=== PATIENT | male | born 1945 | race Caucasian/White ===

== ENCOUNTER 2017-02-05 11:37 | Inpatient (IN) | payer MEDICARE ==
[~2017-02-05] VITALS: Ht 172.7 cm; Wt 85.0 kg
[2017-02-05] VITALS (23 sets, daily range): BP systolic 84–177; BP diastolic 58–99; PULSE 0–80; RESP 9–26; Ht 172.7 cm; Wt 85.0 kg
[2017-02-05] MEDS ORDERED: OLME1TAB5 PO (12:21)
[2017-02-05] MEDS ORDERED: PROP10TA6 PO (12:22)
[2017-02-05] MEDS ORDERED: ASPI-664 PO (12:22)
[2017-02-05] MEDS ORDERED: SIMV20TA PO (12:22)
[2017-02-05] MEDS ORDERED: CEFAZOLIN 2 GM/50 ML (PMX) 50 ML IVPB ONE (12:30)
[2017-02-05] MEDS ORDERED: LACTATED RINGER'S 1,000 ML IV* ONE (12:30)
--- NOTE | 2017-02-05 15:43 | HPN ---
Date/Time of Note Date/Time of Note DATE: 02/05/17 TIME: 15:43 Interval H&P Admission Note Pt. seen H&P reviewed: No system changes RASHARD ANGULO MD Feb 05, 2017 15:43
[2017-02-05] MEDS ORDERED: GELATIN SIZE 100 SPONGE ONE (15:52)
[2017-02-05] MEDS ORDERED: THROMBIN 5000 UNIT VIAL ONE (15:52)
[2017-02-05] MEDS ORDERED: POLYMYXIN/BACITRACIN 1L IRRIG ONE (15:52)
[2017-02-05] MEDS ORDERED: BUPIVACAINE 0.5%/EPI (SDV) 10 ML INJ ONE (15:53)
[2017-02-05] MEDS ORDERED: BETAMET NA PHOS/AC(6 MG/ML) 5ML INJ ONE (15:53)
[2017-02-05] MEDS ORDERED: SUCCINYLCHOLINE CHLORIDE 100 MG/5 ML SYG IV ONE ×2 (16:18→16:45)
[2017-02-05] MEDS ORDERED: ROCURONIUM 50 MG INJ ONE (16:18)
[2017-02-05] MEDS ORDERED: PROPOFOL 20 ML ONE (16:18)
[2017-02-05] MEDS ORDERED: LIDOCAINE 2% (SDV) 5 ML INJ ONE (16:18)
[2017-02-05] MEDS ORDERED: MIDAZOLAM 1 MG/ML 2 ML INJ ONE (16:18)
[2017-02-05] MEDS ORDERED: CEFAZOLIN 1 GM INJ ONE (16:44)
[2017-02-05] MEDS ORDERED: DEXAMETHASONE 4 MG/ML 1 ML INJ ONE (16:54)
[2017-02-05] MEDS ORDERED: ONDANSETRON 4 MG INJ ONE (16:54)
[2017-02-05] MEDS ORDERED: FAMOTIDINE 20 MG INJ ONE (16:54)
[2017-02-05] MEDS: LIDOCAINE 2%/EPI 30 ML INJ ONE ×2 (17:01→19:52)
[2017-02-05] MEDS ORDERED: HEMOSTATIC MATRIX SYG ZFS ONE (17:57)
[2017-02-05] MEDS ORDERED: HYDROmorphONE 2 MG/ML SYG ONE (19:34)
--- NOTE | 2017-02-05 20:22 | OPR ---
Date/Time of Note Date/Time of Note DATE: 02/05/17 TIME: 20:16 Operative Report Free Text/Dictation DATE OF OPERATION: 02/05/2017 PREOPERATIVE DIAGNOSES: 1. L4-5 severe spinal stenosis with neurogenic claudication 2. L3-4 spinal stenosis with neurogenic claudication POSTOPERATIVE DIAGNOSES: 1. L4-5 severe spinal stenosis with neurogenic claudication 2. L3-4 spinal stenosis with neurogenic claudication OPERATION PERFORMED: 1. L4-5 bilateral laminectomy, medial facetectomy, and foraminotomy 2. L3-4 bilateral laminectomy, medial facetectomy, and foraminotomy SURGEON: Rashard Angulo MD MANAGER ASSET MANAGEMENT: Stephen Alvarado MD ANESTHESIA: General endotracheal ESTIMATED BLOOD LOSS: 150 mL SURGICAL INDICATION: The patient is a 71 year-old male who presents with a chronic history of increasing of bilateral lower extremity pain and numbness that is worst with ambulation. The patient was unable to ambulate significant distances secondary to their pain. Tillar's symptoms failed to improve with a conservative course of treatment. . Risks, benefits, and alternatives to a decompressive procedure including but not exclusive of risks of bleeding, infection, nerve injury, cauda equina syndrome, iatrogenic instability, dural tear, myocardial infarction, stroke, pulmonary embolism were explained to the patient, and she wished to proceed. DESCRIPTION OF TECHNIQUE: The patient was identified in the preoperative area and taken to the operating room. Rapid induction of general endotracheal anesthesia was performed. Patient was given 2 g of cefazolin for prophylaxis. The patient was then placed in the prone position on the Amanuel table on top of a Tony frame with all bony prominences well padded. The back was prepped and draped in usual sterile manner. Using a spinal needle and intraoperative fluoroscopy, the L4-5 level was clearly identified. The skin was injected using1% lidocaine with epinephrine. Longitudinal midline incision was then created using a 10 blade. Further dissection through soft tissue was performed using electrocautery down to the spinous processes bilaterally. Dissection was taken down the bilateral lamina and over the facet joint capsule. A self-retaining retractor was applied. Again , intraoperative fluoroscopy confirmed the level. A rongeur was used to remove a portion of the L4 spinous process and the interspinous ligaments. We identified the interlaminar window. The microscope was brought into use for microdissection. The high-speed bur was used to thin the L4 lamina. Kerrison rongeurs were then used to resect a the lamina, and a portion of the medial facet and the bone overlying the foramen. Ligamentum flavum was also resected using the Kerrison rongeurs. Care was taken to protect the thecal sac throughout the decompressive procedure. Palpation with a ball-tip probe did not reveal any further stenosis in the central, subarticular, or foraminal areas. The bilateral L5 and L4 pedicles were palpated using a joe to ensure a pedicle to pedicle decompression. The exiting L4 nerve root and traversing L5 nerve roots were both directly visualized and noted to be decompressed. The cephalad and caudad extent of the decompression were also confirmed using ball- tip probes and intraoperative fluoroscopy. We then focused on the L3-4 level. The L3-4 level was clearly identified using fluoroscopy. The skin was injected using1% lidocaine with epinephrine. Longitudinal midline incision was extended proximally using a 10 blade. Further dissection through soft tissue was performed using electrocautery down to the spinous processes bilaterally. Dissection was taken down the bilateral lamina and over the facet joint capsule. A self-retaining retractor was applied. Again , intraoperative fluoroscopy confirmed the level. A rongeur was used to remove a portion of the L3 spinous process and the interspinous ligaments. We identified the interlaminar window. The microscope was brought into use for microdissection. The high-speed bur was used to thin the L3 lamina. Kerrison rongeurs were then used to resect a the lamina, and a portion of the medial facet and the bone overlying the foramen. Ligamentum flavum was also resected using the Kerrison rongeurs. Care was taken to protect the thecal sac throughout the decompressive procedure. Palpation with a ball-tip probe did not reveal any further stenosis in the central, subarticular, or foraminal areas. The bilateral L3 and L4 pedicles were palpated using a joe to ensure a pedicle to pedicle decompression. The exiting L3 nerve root and traversing L4 nerve roots were both directly visualized and noted to be decompressed. The cephalad and caudad extent of the decompression were also confirmed using ball- tip probes and intraoperative fluoroscopy. The wound was irrigated copiously using normal saline. Meticulous attention was paid toward hemostasis using bipolar cautery, FloSeal and thrombin. Care was taken to remove all FloSeal prior to wound closure. A medium Hemovac was placed. The fascia was then closed using 0 Vicryl in interrupted fashion. Subcutaneous tissue was closed using 2-0 Vicryl in interrupted fashion. Skin was closed using a running 4-0 Monocryl stitch. The wound was dressed using Dermabond, sterile gauze and Tegaderm. The patient was returned to the supine position. They were extubated immediately postoperatively and taken to the recovery room in stable condition. COMPLICATIONS: None. Anesthesia Type: general Estimated Blood Loss: 100 - 150 ml's Transfusion Required: no Specimen: none Grafts/Implants: none Complications: no Pt Condition Post Procedure: stable Disposition: PACU RASHARD ANGULO MD Feb 05, 2017 20:21
[2017-02-05] MEDS ORDERED: PROCHLORPERAZINE 10 MG TAB PO PRN (20:30)
[2017-02-05] MEDS ORDERED: PROCHLORPERAZINE 10 MG INJ IV PRN (20:30)
[2017-02-05] MEDS ORDERED: MEPERIDINE 25 MG INJ IV PRN (20:30)
[2017-02-05] MEDS ORDERED: ONDANSETRON 4 MG INJ IV PRN (20:30)
[2017-02-05] MEDS ORDERED: HYDROCODONE/APAP (5/325) TAB PO PRN (20:30)
[2017-02-05] MEDS ORDERED: HYDROmorphONE 0.2 MG/ML PCA IV SCH (20:30)
[2017-02-05] MEDS ORDERED: DIPHENHYDRAMINE 50 MG INJ IV PRN (20:30)
[2017-02-05] MEDS ORDERED: NACL 0.9% 3 ML SYG IV SCH (20:30)
[2017-02-05] MEDS ORDERED: HYDROmorphONE (0.2 MG/ML) 10ML SYG IV PRN ×3 (20:30)
[2017-02-05] MEDS ORDERED: NALOXONE (0.4 MG/ML) INJ IV PRN (20:30)
[2017-02-05] MEDS ORDERED: FENTAnyl 50 MCG/ML VIAL IV PRN (20:30)
[2017-02-05] MEDS: ONDANSETRON 4 MG INJ IV PRN ×2 (20:40→20:55)
[2017-02-05] MEDS: CEFAZOLIN 1 GM/50 ML (PMX) 50 ML IVPB SCH (23:56)
[2017-02-06] VITALS: BP 127/70; PULSE 69; RESP 18
[2017-02-06 00:10] VITALS: BP 127/70; RESP 20
[2017-02-06 05:10] VITALS: BP 125/65; PULSE 79; RESP 18
[2017-02-06 05:35] LABS: CALCIUM 9.2 mg/dl (8.4-10.2); CREATININE 1.37 mg/dl (0.61-1.24); POTASSIUM 4.4 mmol/L (3.5-5.1)
[2017-02-06 05:45] LABS: HEMOGLOBIN 10.7 g/dl (14.0-18.0)
[2017-02-06] MEDS: CEFAZOLIN 1 GM/50 ML (PMX) 50 ML IVPB SCH ×3 (05:52→18:12)
[2017-02-06 08:03] VITALS: BP 115/58; RESP 18
[2017-02-06] MEDS ORDERED: ATENOLOL 50 MG TAB PO SCH (09:00)
[2017-02-06] MEDS: LOSARTAN 50 MG TAB PO SCH (09:44)
--- NOTE | 2017-02-06 10:31 | RADRPT ---
PROCEDURE: XR Lumbar Spine. CLINICAL INDICATION: Pain. TECHNIQUE: Lumbar spine x-rays, 3 intraoperative fluoroscopic views. Fluoroscopy time: 8.9 second s. COMPARISON: None. FINDINGS: Surgical instrumentation is centered at the L3-L4 and L4-L5 intervertebral disc levels. Vertebral amor dy heights are normal. Scattered osteophytes are seen within the lower lumbar spine. IMPRESSION: Fluoroscopic assistance provided for lumbar spine surgery. RPTAT: HLST .Elidia Infante MD, MD Date Time Electronically viewed and signed by .Elidia Infante MD, on 02/06/2017 10:30 .T/
--- NOTE | 2017-02-06 12:29 | CONS ---
Date/Time of Note Date/Time of Note DATE: 02/06/17 TIME: 12:16 Consult Date/Type/Reason Admit Date/Time Feb 05, 2017 at 11:37 Initial Consult Date Type of Consultation: Ortho Spine Progress Note Subjective 71 yo Male POD#1 s/p L3-L5 decompression for severe spinal stenosis. He had some nausea and emesis x2 which is improving. He is currently tolerating a clear diet. He has not passed gas. His pain is under control with a Dilaudid [employer]. He has been working well with PT. He denies any chest pain or shortness of breath. Objective Vital Signs Date Time Temp Pulse Resp B/P Pulse Ox O2 Delivery O2 Flow Rate FiO2 02/06/17 08:03 97.9 64 18 115/58 100 02/06/17 05:10 Nasal Cannula 2.0 Intake and Output 02/05/17 02/05/17 02/06/17 15:00 23:00 07:00 Intake Total 1500 ml 100 ml Output Total 280 ml 120 ml Balance 1220 ml -20 ml Exam Gen: AAOx3, NAD Spine: dressing C/D/I, 5/5 b/l HF/KE/TA/GS/EHL, +SILT L3-S1 Abdomen: mild distension but soft, hypoactive BS Results/Medications Result Diagram: 02/06/17 0454 02/06/17 0454 Results 24 hrs Laboratory Tests Test 02/06/17 04:54 Hemoglobin 10.7 L Hematocrit 32.0 L Sodium Level 132 L Potassium Level 4.4 Chloride Level 98 Carbon Dioxide Level 28 Anion Gap 10 Blood Urea Nitrogen 23 H Creatinine 1.37 H Glucose Level 135 Calcium Level 9.2 Medications Current Medications Acetaminophen/ Hydrocodone Bitart ([place] (5/325)) 1 tab Q4H PRN PO PAIN LEVEL 1 -5; Start 02/05/17 at 20:30 Acetaminophen/ Hydrocodone Bitart 2 tab 2 tab Q4H PRN PO PAIN LEVEL 6-10; Start 02/05/17 at 20:30 Cefazolin Sodium (Ancef 1 Gm/50 ml (Pmx)) 50 ml @ 100 mls/hr Q6 IVPB Last administered on 02/06/17t 11:51; Admin Dose 100 MLS/HR; Start 02/06/17 at 00:00 ; Stop 02/06/17 at 18:29 Prochlorperazine (Compazine) 10 mg Q4H PRN PO NAUSEA AND/OR VOMITING; Start 04/13 at 20:30 Ondansetron HCl (Zofran Inj) 4 mg Q6H PRN IV NAUSEA AND/OR VOMITING Last administered on 02/06/17 10:33; Admin Dose 4 MG; Start 02/05/17 at 20:30 Naloxone HCl (Narcan) 0.2 mg Q2M PRN IV RR 8 BREATHS/MIN OR LESS; Start at 20:30 Atorvastatin Calcium (Lipitor) 20 mg HS PO ; Start 02/06/17 at 21:00 Losartan Potassium (Cozaar) 100 mg DAILY PO Last administered on 02/06/17 09: 44; Admin Dose 100 MG; Start 02/06/17 at 09:00 Atenolol (Tenormin) 50 mg DAILY PO Last administered on 02/06/17 09:42; Admin Dose 50 MG; Start 02/06/17 at 09:00 Assessment/Plan Chief Complaint/Hosp Course 71 yo Male POD#1 s/p L3-L5 decompression 1. D/C [employer], start PO [place] 2. Appreciate med recs for electrolyte repletion and medical management 3. PT 4. drain output 60 cc in past 5 hours, will likely D/C drain tomorrow 5. for mild ileus will D/C [employer], encourage ambulation and continue clears until patient passes gas 6. D/C planning, likely D/C home tomorrow Problems: RASHARD ANGULO MD Feb 06, 2017 12:27
[2017-02-06 13:00] VITALS: BP 116/64; RESP 20
[2017-02-06] MEDS ORDERED: METOCLOPRAMIDE 10 MG INJ IV ONE (13:00)
--- NOTE | 2017-02-06 14:03 | CONS ---
Date/Time of Note Date/Time of Note DATE: 02/06/17 TIME: 13:58 Assessment/Plan Assessment/Plan Problems: (1) S/P lumbar laminectomy Onset Date: ~ 02/05/2017 Status: Acute Comment: He is recuperating postoperatively reports subjectively he already is better than he was preoperatively. To monitor carefully and aggressive physical therapy to get him up and around. Anticipate good rehabilitation potential (2) Essential hypertension Status: Chronic Comment: I would like to simplify his regimen from propanolol 3 times daily to atenolol 25 mg once a day. Given his reactive airways disease and his usage of the Advair 4 days out of the week I believe that the atenolol is superior to the propanolol (3) Hyperlipidemia Status: Chronic Comment: Continue statin therapy Qualifiers: Qualified Code: E78.00 - Pure hypercholesterolemia (4) Vitamin D deficiency Status: Chronic Comment: Noted. Consultation Date/Type/Reason Admit Date/Time Feb 05, 2017 at 11:37 Date of Consultation: Feb 05, 2017 Type of Consultation: Internal medicine Reason for Consultation Postop assistance with medical management of medical problems Referring Provider: RASHARD ANGULO MD Hx of Present Illness Charming 71-year-old Telugu gentleman brought in electively for lumbar laminectomy correction of spinal stenosis with symptomatic neurogenic claudication. Patient had been cleared for surgery by his regular doctors Constitutional: no complaints Eyes: no complaints ENT: no complaints Respiratory: no complaints Cardiovascular: no complaints Gastrointestinal: no complaints Genitourinary: no complaints Musculoskeletal: back pain Past Medical History 1) essential hypertension, 2) Vitamin D deficiency, 3) hyperlipidemia, 4) reactive airways disease, 5) renal cyst Past Surgical History As post lumbar microdiscectomy; test post right shoulder arthroscopy; status post inguinal hernia repair; status post vocal cord polypectomy; Family History Significant Family History: no pertinent family hx Social History Alcohol Use: none Smoking Status: Never smoker Drug Use: none Other Social History [facility] and raised. and lives with spouse. 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 Exam/Review of Systems Vital Signs Vitals Vital Signs Date Time Temp Pulse Resp B/P Pulse Ox O2 Delivery O2 Flow Rate FiO2 02/06/17 08:03 97.9 64 18 115/58 100 02/06/17 05:10 Nasal Cannula 2.0 Intake and Output 02/05/17 02/05/1717 15:00 23:00 07:00 Intake Total 1500 ml 100 ml Output Total 280 ml 120 ml Balance 1220 ml -20 ml Exam Dignified Telugu gentleman lying in bed. Constitutional: alert, oriented Head: atraumatic, normocephalic Eyes: EOMI, nl conjunctiva, nl lids, nl sclera ENMT: mucosa pink and moist, nl external ears & nose, nl lips & teeth, nl nasal mucosa & septum Neck: non-tender, supple Respiratory: clear to auscultation, normal air movement Cardiovascular: nl pulses, regular rate and rhythm Gastrointestinal: nl liver, spleen, non-tender, soft Results Result Diagram: 02/06/17 0454 02/06/17 0454 Results 24 hrs Laboratory Tests Test 02/06/17 04:54 Hemoglobin 10.7 L Hematocrit 32.0 L Sodium Level 132 L Potassium Level 4.4 Chloride Level 98 Carbon Dioxide Level 28 Anion Gap 10 Blood Urea Nitrogen 23 H Creatinine 1.37 H Glucose Level 135 Calcium Level 9.2 Medications Medications Current Medications Acetaminophen/ Hydrocodone Bitart ([place] (5/325)) 1 tab Q4H PRN PO PAIN LEVEL 1 -5; Start 02/05/17 at 20:30 Acetaminophen/ Hydrocodone Bitart 2 tab 2 tab Q4H PRN PO PAIN LEVEL 6-10; Start 02/05/17 at 20:30 Cefazolin Sodium (Ancef 1 Gm/50 ml (Pmx)) 50 ml @ 100 mls/hr Q6 IVPB Last administered on 02/06/17 11:51; Admin Dose 100 MLS/HR; Start 02/06/17 at 00:00 ; Stop 02/06/17 at 18:29 Prochlorperazine (Compazine) 10 mg Q4H PRN PO NAUSEA AND/OR VOMITING; Start 04/13 at 20:30 Ondansetron HCl (Zofran Inj) 4 mg Q6H PRN IV NAUSEA AND/OR VOMITING Last administered on 02/06/17 10:33; Admin Dose 4 MG; Start 02/05/17 at 20:30 Naloxone HCl (Narcan) 0.2 mg Q2M PRN IV RR 8 BREATHS/MIN OR LESS; Start at 20:30 Atorvastatin Calcium (Lipitor) 20 mg HS PO ; Start 02/06/17 at 21:00 Losartan Potassium (Cozaar) 100 mg DAILY PO Last administered on 02/06/17 09: 44; Admin Dose 100 MG; Start 02/06/17 at 09:00 Atenolol (Tenormin) 50 mg DAILY PO Last administered on 02/06/17 09:42; Admin Dose 50 MG; Start 02/06/17 at 09:00 Zolpidem Tartrate (Ambien) 10 mg HS PRN PO INSOMNIA; Start 02/06/17 at 13:00 WIN SAVAGE MD Feb 06, 2017 14:03
[2017-02-06] MEDS ORDERED: DESM0.2T22 PO (18:20)
[2017-02-06] MEDS: HYDROCODONE/APAP (5/325) TAB PO PRN (20:12)
[2017-02-06] MEDS: PROPRANOLOL 10 MG TAB PO SCH (21:00)
[2017-02-06] MEDS ORDERED: ATORVASTATIN 20 MG TAB PO SCH (21:00)
[2017-02-06] MEDS ORDERED: SALMETEROL/FLUTICASONE 250/50 INHA INH SCH (21:00)
[2017-02-06] MEDS: ZOLPIDEM 5 MG TAB PO PRN ×2 (22:18→22:20)
[2017-02-06] MEDS ORDERED: ACETAMINOPHEN 1000MG/100ML IV 100 ML IVPB PRN (22:30)
[2017-02-07 02:34] VITALS: BP 121/67; RESP 18
[2017-02-07] MEDS: HYDROCODONE/APAP (5/325) TAB PO PRN ×3 (04:03→16:39)
[2017-02-07 08:21] VITALS: BP 129/62; RESP 18
--- NOTE | 2017-02-07 08:55 | CONS ---
Date/Time of Note Date/Time of Note DATE: 02/07/17 TIME: 08:52 Assessment/Plan Assessment/Plan Chief Complaint/Hosp Course Deysi 71-year-old Mongolian gentleman brought in electively for lumbar laminectomy correction of spinal stenosis with symptomatic neurogenic claudication. Patient had been cleared for surgery by his regular doctors Problems: (1) Familial tremor Status: Chronic Comment: Noted; Would try atenolo as outpatient given pulmonary status as opposed to propanolol (2) Essential hypertension Status: Chronic Comment: good control, can at discharge resume prior meds (3) Hyperlipidemia Status: Chronic Comment: continue statins Qualifiers: Hyperlipidemia type: pure hypercholesterolemia Qualified Code: E78.00 - Pure hypercholesterolemia (4) S/P lumbar laminectomy Onset Date: ~ 02/05/2017 Status: Acute Comment: Recovering well. Anticipate good rehab potential and ok to discharge today Consultation Date/Type/Reason Admit Date/Time Feb 05, 2017 at 11:37 Initial Consult Date 02/05/17 Type of Consultation: Internal medicine Reason for Consultation Hypertension; lipids, familial tremor Referring Provider: RASHARD ANGULO MD 24 HR Interval Summary Constitutional: no complaints Detailed Summary Respiratory: no complaints Cardiovascular: no complaints Gastrointestinal: no complaints Genitourinary: no complaints Exam/Review of Systems Vital Signs Vitals Vital Signs Date Time Temp Pulse Resp B/P Pulse Ox O2 Delivery O2 Flow Rate FiO2 02/07/17 08:21 98.3 56 18 129/62 99 02/06/17 05:10 Nasal Cannula 2.0 Intake and Output 02/06/17 02/06/17 02/07/17 15:00 23:00 07:00 Intake Total 50 ml 796 ml 560 ml Output Total 60 ml 435 ml 1130 ml Balance -10 ml 361 ml -570 ml Exam Constitutional: alert, oriented Neck: non-tender, supple Respiratory: clear to auscultation, normal air movement (improved air movement) Results Result Diagram: 02/06/17 0454 02/06/17 0454 Medications Medications Current Medications Acetaminophen/ Hydrocodone Bitart ([place] (5/325)) 1 tab Q4H PRN PO PAIN LEVEL 1 -5; Start 02/05/17 at 20:30 Acetaminophen/ Hydrocodone Bitart ([place] (5/325)) 2 tab Q4H PRN PO PAIN LEVEL 6 -10 Last administered on 02/07/17 04:03; Admin Dose 2 TAB; Start 02/05/17 at 20 :30 Prochlorperazine (Compazine) 10 mg Q4H PRN PO NAUSEA AND/OR VOMITING; Start 04/13 at 20:30 Ondansetron HCl (Zofran Inj) 4 mg Q6H PRN IV NAUSEA AND/OR VOMITING Last administered on 02/06/17 10:33; Admin Dose 4 MG; Start 02/05/17 at 20:30 Naloxone HCl (Narcan) 0.2 mg Q2M PRN IV RR 8 BREATHS/MIN OR LESS; Start at 20:30 Atorvastatin Calcium (Lipitor) 20 mg HS PO Last administered on 02/06/17 20:12 ; Admin Dose 20 MG; Start 02/06/17 at 21:00 Losartan Potassium (Cozaar) 100 mg DAILY PO Last administered on 02/06/17 09: 44; Admin Dose 100 MG; Start 02/06/17 at 09:00 Zolpidem Tartrate (Ambien) 10 mg HS PRN PO INSOMNIA Last administered on 22:20; Admin Dose 5 MG; Start 02/06/17 at 13:00 Salmeterol Xinafoate/ Fluticasone (Advair 250/50 Diskus) 1 inh QHS INH Last administered on 02/06/17 20:12; Admin Dose 1 INH; Start 02/06/17 at 21:00 Propranolol HCl (Inderal) 10 mg TID PO ; Start 02/06/17 at 21:00 Simethicone 80 mg 80 mg Q6H PRN PO DISTENSION/GAS/BLOATING Last administered on 02/07/17 04:03; Admin Dose 80 MG; Start 02/06/17 at 22:30 Acetaminophen (Ofirmev 1000mg/ 100ml Iv) 100 ml @ 400 mls/hr Q12H PRN IVPB PAIN Last administered on 02/07/17 01:07; Admin Dose 400 MLS/HR; Start at 22:30 WIN SAVAGE MD Feb 07, 2017 08:55
[2017-02-07] MEDS ORDERED: ATENOLOL 25 MG TAB PO SCH (09:00)
[2017-02-07] MEDS: PROPRANOLOL 10 MG TAB PO SCH ×2 (09:00→13:50)
[2017-02-07] MEDS: LOSARTAN 50 MG TAB PO SCH (09:09)
[2017-02-07 15:50] VITALS: BP 128/68; RESP 18
--- NOTE | 2017-02-07 18:00 | PDOCDIS ---
Discharge Instructions CONDITION Patient Condition: Good HOME CARE INSTRUCTIONS: Diet Instructions: Regular ACTIVITY: Activity Restrictions: Slowly Increase Activity Rest between Activity Avoid heavy lifting Do not Drive Do not operate Machinery Do not operate Power Tool Avoid Heavy Housework No Weight Bearing Special Exercises Bathing Restrictions: Shower FOLLOW UP/APPOINTMENTS Follow-up Plan Follow-up in 2 weeks with RASHARD Hensley MD Feb 07, 2017 18:00
== END 2017-02-07 18:50 | disposition home or self-care (01) | DRG 515 ==
LOC: REC 11:37 → MS1 22:05
PROVIDERS: ADMIT Orthopaedic Surgery; ATTEND Orthopaedic Surgery
PROC: 01NB0ZZ Release Lumbar Nerve, Open Approach (ICD-10-PCS; principal; 2017-02-05 15:00)
DX: M48.06 Spinal stenosis, lumbar region (principal); G95.19 Other vascular myelopathies; I10 Essential (primary) hypertension; E78.5 Hyperlipidemia, unspecified; E55.9 Vitamin D deficiency, unspecified; G25.0 Essential tremor
CPT/HCPCS: 72100; 80048; 85014; 85018; 86850; 86900; 86901; 97116; 97163; 97530; J0131; J0690; J0702; J1100; J1170; J2250; J2405; J2765; J3010; J7999